=== PATIENT | male | born 1950 | race Caucasian/White ===

== ENCOUNTER → 2017-03-26 | Outpatient (CLI) | payer OTHER ==
[~2017-03-26] MED LIST: ASPI1TAB69 PO; ASPI81CH CHEW; HYDR-3366 PO; HYDR25TA5 PO; LISI-515 PO; PYRI100T4 PO; RED600TA PO; YL V100T PO
== END ==
LOC: CPRE 11:14
PROVIDERS: ATTEND Neurological Surgery
DX: M47.14 Other spondylosis with myelopathy, thoracic region (principal); M43.16 Spondylolisthesis, lumbar region; M99.83 Other biomechanical lesions of lumbar region; M51.36 Other intervertebral disc degeneration, lumbar region

== ENCOUNTER 2017-03-29 06:14 | Day surgery (SDC) | payer OTHER ==
--- NOTE | 2017-03-28 18:38 | MH ---
cc: HERNAN ASHLEY M.D. DATE OF ADMISSION 03/29/2017 ADMISSION DIAGNOSIS Thoracic spinal stenosis. HISTORY OF PRESENT ILLNESS This is a 66-year-old male who presented to us for evaluation of low back pain and right thigh pain. He states the pain started in the low back about 4 years ago and initially was intermittent. He states that over the last 1-2 years the pain is radiating into the right lateral thigh and knee area but not past the knee. He states he walks, he has to sit after short distance to relieve the pain. He also walks hyperflexed in his low back which helps with his pain. The leg pain bothers him more than the back pain in intensity. He states he was having numbness of the right lower leg but has not had this for the last 1-2 years. He denies any left lower extremity symptoms. He denies any weakness or bowel or bladder incontinence. He has not been to physical therapy although states he works out in the gym about twice week. He has not been to pain management. PAST MEDICAL HISTORY Significant for: 1. Hypertension. 2. Varicose veins removal from his right leg in 2003. CURRENT MEDICATIONS He is takin. Hydrochlorothiazide 25 mg daily. 2. Lisinopril 20 mg daily. 3. Aspirin 81 mg daily. 4. Vitamin B6 100 mg daily. ALLERGIES NO KNOWN DRUG ALLERGIES. MEDICATIONS She has no known drug allergies. FAMILY HISTORY His mother is at 33 years old, had breast cancer. His father is alive. He has two brothers and a sister that are alive. SOCIAL HISTORY He is a teacher. He is . He does not have children. He does not smoke and has not smoked in the past. He drinks 0-2 drinks daily. REVIEW OF SYSTEMS CONSTITUTIONAL: He denies any fever or chills. EARS, NOSE, AND THROAT: No pharyngitis or exudate or bloody drainage from his nose. CARDIOVASCULAR: He denies any chest pain, palpitations. RESPIRATORY: No cough or shortness of breath. GENITOURINARY: No dysuria or hematuria. MUSCULOSKELETAL: Positive for low back pain. SKIN: No rashes or pruritus. NEUROLOGICAL: No difficulty with speech or memory. GASTROINTESTINAL: No nausea or vomiting, abdominal pain. PSYCHIATRIC: No anxiety or depression symptoms. ENDOCRINE: No polyuria or polydipsia. HEMATOLOGIC: No bruising or bleeding tendencies. PHYSICAL EXAMINATION HEAD: Normocephalic, atraumatic. NECK: Supple. No carotid bruits heard on auscultation. LUNGS: Clear to auscultation bilaterally. HEART: Regular rate and rhythm. Normal S1-S2. ABDOMEN: Soft and nontender. Positive bowel sounds. SKIN: Reveals no cyanosis or erythema. MUSCULOSKELETAL: He has 5/5 strength in the lower extremities. He ambulates without any assistive device. NEUROLOGIC: Awake and alert, oriented. Cranial nerves II through XII grossly intact. Speech is fluent. Comprehension is good. Right patellar reflex is absent. Left patellar and bilateral Achilles reflexes are 2+. IMAGING Data reviewed MRI of the lumbar spine from January 05, 2017 and the thoracic spine from January 31, 2017 which reveals severe T11/12 spinal stenosis with cord compression and myelomalacia from facet ligamentum flavum hypertrophy with disk protrusion. He has a grade 1/2 L4-L5 spondylolisthesis with severe disk degeneration and complete disk height collapse along with facet arthropathy and foraminal stenosis. He also has significant disk degeneration involving the L1-L2 and L2-L3 levels. IMPRESSION A 66-year-old male with chronic low back pain and right thigh numbness with associated neurogenic claudication symptoms with limited ambulatory status. He has severe T11-T12 spinal stenosis with spinal cord compression, myelomalacia with associated thoracic myelopathy. His back pain is related to his severe L4-L5 degenerate disk disease and facet arthropathy with high grade spondylolisthesis along with a lesser degree of degenerative disk disease and facet arthropathy at other levels. PLAN We have recommended a T11-T12 decompressive laminectomy to alleviate the spinal cord compression. Regarding the L4-L5 degenerative disc disease with spinal listhesis he is recommended physical therapy with spinal stabilization, core muscle strengthening exercises. We have discussed the procedure as well as the risks, benefits, alternatives and recovery time in great detail with the patient. We have discussed the risks involved with surgery include but limited to bleeding, infection, muscle weakness, voice hoarseness, difficulty swallowing, heart attack, stroke, blood clots, scar tissue formation among others. The patient states he understands the procedure as well as the risks involved and he is therefore, scheduled accordingly. DICTATED BY: Kartik Dunn PA-C MD KJ Michel /5:08 PM /6:19 PM
[~2017-03-29] VITALS: Ht 182.9 cm; Wt 108.3 kg
[~2017-03-29 06:14] MED LIST changes: -ASPI1TAB69 PO; -HYDR-3366 PO; -YL V100T PO
[2017-03-29 06:44] VITALS: BP 142/73; PULSE 60; RESP 20; TEMP 98.2; O2SAT 98
[2017-03-29] MEDS ORDERED: VANCOMYCIN HCL 1000 MG ON-CALL/NS 250 ML IV SCH ×2 (06:45)
[2017-03-29] MEDS ORDERED: THROMBIN (TOPICAL) 5,000 UNIT VIAL ONE (06:45)
[2017-03-29] MEDS ORDERED: METOPROLOL TARTRATE 25 MG TAB PO PRN (06:45)
[2017-03-29] MEDS ORDERED: POVIDONE IODINE 5% (ANTISEPSIS KIT) 4 APPLICATIONS EACH NARE PRN (06:45)
[2017-03-29] MEDS ORDERED: SODIUM CHLORID 0.9% 500 ML IV PRN (06:45)
[2017-03-29] MEDS ORDERED: LACTATED RINGER'S 1000 ML IV PRN (06:45)
[2017-03-29] MEDS ORDERED: INSULIN HUMAN REGULAR 1,000 UNITS/10 ML VIAL SQ PRN (06:45)
[2017-03-29] MEDS ORDERED: VANCOMYCIN HCL 1000 MG VIAL ONE (06:45)
[2017-03-29] MEDS ORDERED: CHLORHEXIDINE GLUCONATE 2 % 1 PACK (2 CLOTHS) TOPICAL PRN (06:45)
[2017-03-29] MEDS ORDERED: SODIUM CHLOR 0.9% 1000 ML INJ 1,000 ML IV SCH (06:45)
[2017-03-29] MEDS ORDERED: GELATIN 12 MM/7 MM FOAM ONE (06:46)
[2017-03-29] MEDS ORDERED: HYDROmorphone HCL PF 2 MG/ML VIAL ONE (06:55)
[2017-03-29] MEDS ORDERED: ACETAMINOPHEN 1000 MG/100 ML VIAL IV ONE (06:56)
[2017-03-29] MEDS ORDERED: MIDAZOLAM HCL 2 MG/2 ML VIAL ONE (07:49)
[2017-03-29] MEDS ORDERED: FAMOTIDINE 20 MG/2 ML VIAL ONE (07:49)
[2017-03-29] MEDS ORDERED: methylPREDNISolone ACETATE 40 MG/ML VIAL ONE (08:54)
[2017-03-29] MEDS ORDERED: BUPIVACAINE/EPINEPHRINE 0.5% PF 30 ML VIAL INFIL ONE (09:16)
[2017-03-29] MEDS ORDERED: GELFOAM SIZE 100 TOPICAL ONE (09:30)
[2017-03-29] MEDS ORDERED: HYDR-3366 PO (10:44)
[2017-03-29] MEDS ORDERED: DO NOT ADM ANY ANTICOAGULANT DRUGS PRN (10:50)
--- NOTE | 2017-03-29 10:50 | PD.OP ---
cc: Aneudy Rossi MD Operative Report Date of Surgery: Mar 29, 2017 Preoperative Diagnosis: Thoracic T11-12 stenosis with associated spinal cord compression and myelopathy Postoperative Diagnosis: Same Procedure: Thoracic T11 and T12 decompressive laminectomy; microsurgical technique Anesthesia: Gen. endotracheal by Severo Ponce Surgeon: Deondre Kim M.D. Footwear Sales Representative(s): Rekha Sigala Operation and Findings: Following administration of general endotracheal anesthesia, patient received vancomycin 1 g intravenously. Sequential compression devices were placed for DVT prophylaxis. He was then turned in prone position on Jeffrey frame and the Alexandro table and all pressure points adequately padded. The thoracic lumbar region was then shaved and prepped with a Betadine and ChloraPrep. Sterile draping undertaken with Ioban. Midline incision overlying the T11-12 level was then made after infiltrating the skin with 0.5% Marcaine with epinephrine solution. The level was localized and using AP and lateral fluoroscopy counting from the sacrum upwards as well as from the lowest rib. The skin incision was made extending down through the fascia and then using the subperiosteal plane and the muscular attachments to the spinous process and lamina were detached bilaterally. Intraoperative fluoroscopy was used for level confirmation and further dissection undertaken using microtechnique with microscope magnification. The T11 and T12 spinous process was resected with a Leksell and lamina were then drilled out and the underlying ligamentum flavum also removed. There was facet arthropathy along with the hypertrophied ligamentum flavum leading to spinal stenosis and thecal sac compression which are certainly removed and spinal canal decompressed. Epidural venous stasis which he with the bipolar cautery along with Gelfoam and thrombin and bone wax used at the laminotomy edges for hemostasis. The area was then copiously irrigated with antibiotic solution. The retractors removed and the muscle fascia proximal using 2-0 Vicryl interrupted stitches. 3-0 Vicryl subcuticular stitches were also placed in an interrupted fashion and planned skin closure was with Mastisol and Steri-Strips. A sterile dressing was then applied and the patient then turned in the supine position and extubated and taken to recovery room in stable condition. There were no intraoperative complications and all sponge and needle count was correct at the end of the procedure. Estimated blood loss about 20 ml. Intraoperative neurologic monitoring remained stable throughout the surgery. Deondre Kim MD Mar 29, 2017 10:50
[2017-03-29] MEDS ORDERED: ACETAMINOPHEN/HYDROcodone 325 MG/10 MG TAB PO PRN (11:00)
--- NOTE | 2017-03-29 11:29 | RADRPT ---
EXAM DATE/TIME: 03/29/2017 08:51 [facility] COMPARISON: No previous studies available for comparison. INDICATIONS : T11,T12 laminectomy. MEDICAL HISTORY : None. SURGICAL HISTORY : None. ENCOUNTER: Initial ACUITY: 1 day PAIN SCORE: Non-responsive. LOCATION: Thoracic spine. FINDINGS: 3 fluoroscopic images of the thoracolumbar spine are submitted. There is a needle projecting at the L 2-3 level. Surgical instruments project at T11-12 level body. Vertebral body heights are intact there is disc grade 1 anterolisthesis of L4 and L5. CONCLUSION: 1. Surgical instruments project at the T11-12 level, as above. Latrell White MD on March 29, 2017 at 11:03 Board Certified Radiologist. This report was verified electronically.
[2017-03-29] MEDS ORDERED: ePHEDrine/NS 25 MG/5 ML SYR IV ONE (12:00)
[2017-03-29] MEDS ORDERED: NEOSTIGMINE 3 MG/3 ML SYR IV ONE (12:00)
[2017-03-29] MEDS ORDERED: PHENYLEPH/NS 1000 MCG/10 ML SYR IV ONE (12:00)
[2017-03-29] MEDS ORDERED: PROPOFOL 200 MG/20 ML AMP IV ONE (12:00)
[2017-03-29] MEDS ORDERED: ONDANSETRON HCL 4 MG/2 ML VIAL IV PUSH ONE (12:00)
[2017-03-29] MEDS ORDERED: NORMOSOL R INJ 1,000 ML IV ONE (12:00)
[2017-03-29 12:25] VITALS: BP 136/69; PULSE 61; RESP 18; TEMP 97.5; O2SAT 97
== END 2017-03-29 12:30 | disposition home or self-care (01) ==
LOC: HSDC 06:14 → EDUNIT# 08:30 → HSDC 12:30
PROVIDERS: ATTEND Neurological Surgery
DX: M48.04 Spinal stenosis, thoracic region (principal); G95.20 Unspecified cord compression; M51.36 Other intervertebral disc degeneration, lumbar region; M54.5 Low back pain; M79.651 Pain in right thigh; R20.0 Anesthesia of skin; I10 Essential (primary) hypertension; Z79.899 Other long term (current) drug therapy; Z79.82 Long term (current) use of aspirin
CPT/HCPCS: 00620; 63046; 72020; 76000; J0131; J1170; J2250; J2370; J2405; J2710; J3370; J7050; J7120; J1030